=== PATIENT | male | born 1980 | race Caucasian/White ===

== ENCOUNTER 2021-01-21 14:49 | Emergency (ER) | payer OTHER ==
[~2021-01-21] VITALS: Ht 175.3 cm; Wt 70.4 kg
--- NOTE | 2021-01-21 15:00 | PHYS DOC ---
Past Medical History Past Medical History: Seizure, Other Additional Past Medical Histor: sustance abuse Past Surgical History: Other Additional Past Surgical Histo: R arm, R leg and L hand Smoking Status: Current Every Day Smoker Alcohol Use: None Drug Use: Benzodiazepine, Methamphetamine, Opiates General Adult HPI: HPI: Patient is a 40 year old male who was brought in by private vehicle for evaluation of injury sustained, prior to arrival, while at work. He was using a table saw and injured his left thumb, left index finger, left middle finger and left ring finger. His tetanus status is up-to-date within the last year. No other injuries or traumas reported. He has an amputation of his left index finger, he brought the remaining piece of finger with him in a cup of ice. He has a large laceration of his left thumb, fingertip avulsion/amputations of his middle and ring finger. He is unable to fully extend his left middle finger at the PIP joint. He is right-hand dominant. Review of Systems: Review of Systems: Constitutional: Denies fever or chills. [] Respiratory: Denies cough or shortness of breath. [] Cardiovascular: Denies chest pain or edema. [] GI: Denies abdominal pain, nausea, vomiting Musculoskeletal: Left digit injuries, lacerations, amputations, as noted above Integument: Multiple lacerations of the left hand/digits Neurologic: Denies headache, focal weakness or sensory changes. [] Psychiatric: Anxiety as it relates to current injury [] Heart Score: C/O Chest Pain: No Risk Factors: Risk Factors: DM, Current or recent (<one month) smoker, HTN, HLP, family history of CAD, obesity. Risk Scores: Score 0 - 3: 2.5% MACE over next 6 weeks - Discharge Home Score 4 - 6: 20.3% MACE over next 6 weeks - Admit for Clinical Observation Score 7 - 10: 72.7% MACE over next 6 weeks - Early Invasive Strategies Allergies: Allergies: Allergies Coded Allergies Type Severity Reaction Last Updated Verified No Known Drug Allergies 02/04/14 No Physical Exam: PE: Constitutional: Well developed, well nourished, appears to be in pain, anxious, mild distress secondary to injury, non-toxic HENT: Normocephalic, atraumatic Eyes: Sclera are clear Neck: Trachea midline Cardiovascular: Well perfused appearing, +2 radial pulse Lungs & Thorax: Respirations are non-labored Skin: Jagged laceration of the left thumb, jagged laceration of the left dorsal middle finger, overlying the PIP joint, left index finger is completely amputated just distal to the PIP joint; finger tip avulsion/partial amputation of the left middle finger and finger tip avulsion/partial amputation of the left ring finger Extremities: Multiple digit injuries of the left hand. The pinky finger/fifth digit is spared of injury. There is a jagged large laceration of the left thumb. Left index finger amputation with visible bone. Laceration overlying the left middle finger PIP joint with inability to extend at the PIP joint. Finger tip avulsions/partial amputations of the left middle and ring fingers. Painful and limited ROM. +2 radial pulse of the L hand. Neurologic: Alert and oriented X 3, gait steady, speech is fluent. Psychologic: Affect is anxious but appropriate for situation. He is cooperative. [] EKG: EKG: [] Radiology/Procedures: Radiology/Procedures: IMAGING REPORT Signed PATIENT: MECHE VILLANUEVA ACCOUNT: [id number] : 1980 LOCATION: ER AGE: 40 SEX: M EXAM STATUS: REG ER ORD. PHYSICIAN: TATI BURDICK DO REASON: multiple digit lacerations, amputations PROCEDURE: HAND LEFT 3V XR HAND_LEFT 3 VIEWS DATE: 01/21/2021 3:00 PM INDICATION: multiple digit lacerations, amputations COMPARISON: None. FINDINGS: Suboptimal patient positioning. First digit: Acute nondisplaced first distal phalanx fracture involving the mid diaphysis. Second digit: Traumatic amputation of the second digit at the middle phalanx diaphysis. Difficult to assess if PIP joint is congruent due to digit flexion. Third digit: Suboptimally evaluated due to digit flexion. Suspect third distal phalanx distal tuft avulsion fracture. Fourth digit: Traumatic amputation of the fourth digit tip, involving the distal tuft of the fourth distal phalanx. Fifth digit: No fracture seen, allowing for positioning. Chronic distal radius fracture status post ORIF. Chronic ulnar styloid fracture. IMPRESSION: Injuries of the first-fourth digits as above. Correlate with clinical exam, if clinically warranted additional imaging could be obtained. Electronically signed by: David Cash MD (01/21/2021 3:44 PM) [id number] DICTATED and SIGNED BY: DAVID CASH MD DATE: 01/21/21 [id number] Course & Med Decision Making: Course & Med Decision Making Pertinent Labs and Imaging studies reviewed. (See chart for details) The patient is given multiple doses of IV pain medication including IV morphine and IV Dilaudid. His tetanus is already up-to-date. He is given dose of IV Ancef. I dressed each of his wounds in Vaseline gauze, 4 x 4's and Kerlix. He is placed in a volar splint. His injuries require formal hand surgery consultation. I initially spoke with [facility], who reports they have availability of plastic/hand surgery. They do not have the ability to reimplant an amputated digit, and they recommended contact [facility]. I made multiple phone calls to [facility], over the course of over an hour, and ultimately they reported that they did not have an available hand surgeon, nor capacity to accept this patient. The patient was accepted by Dr. Lassiter in the ER at [facility]. She is transferred via EMS. Sandra Disclaimer: Sandra Disclaimer: This electronic medical record was generated, in whole or in part, using a voice recognition dictation system. Departure Departure Impression: Primary Impression: Open fracture of left thumb Additional Impressions: Open fracture of phalanx of left index finger Open fracture of phalanx of left middle finger Open fracture of phalanx of left ring finger Laceration of left thumb Laceration of left middle finger Extensor tendon laceration, finger, open wound Traumatic amputation of left index finger Traumatic amputation of fingertip Disposition: 02 SHORT TERM [facility]OSPITAL Condition: GUARDED Referrals: NO PCP (PCP) TATI BURDICK DO Jan 21, 2021 15:00
[2021-01-21] MEDS ORDERED: ONDANSETRON PF 4 MG/2 ML VIAL. ONE (15:05)
[2021-01-21] MEDS ORDERED: MORPHINE SULFATE 4 MG/ML INJ. ONE (15:05)
[2021-01-21 15:08] LABS: BASO % 1 % (0-3); EOS # 0.1 x10^3/uL (0.0-0.7); EOS % 3 % (0-3); HEMATOCRIT 43.3 % (39.0-53.0); HEMOGLOBIN 14.8 g/dL (13.0-17.5); LYMPH # 0.9 x10^3/uL (1.0-4.8); LYMPH % 17 % (24-48); MEAN CORPUSCULAR HEMOGLOBIN 32 pg (25-35); MEAN CORPUSCULAR HGB CONC 34 g/dL (31-37); MEAN CORPUSCULAR VOLUME 92 fL (79-100); MONO # 0.5 x10^3/uL (0.0-1.1); MONO % 10 % (0-9); NEUT # 3.4 x10^3/uL (1.8-7.7); NEUT % 69 % (31-73); PLATELET COUNT 166 x10^3/uL (140-400); RED CELL DISTRIBUTION WIDTH 12.8 % (11.5-14.5); WHITE BLOOD COUNT 4.9 x10^3/uL (4.0-11.0)
[2021-01-21] MEDS: ONDANSETRON PF 4 MG/2 ML VIAL. IVP ONE (15:09)
[2021-01-21] MEDS: MORPHINE SULFATE 4 MG/ML INJ. IVP ONE (15:11)
[2021-01-21] MEDS: ceFAZolin SODIUM IV Push 1 GM VIAL. IVP ONE (15:24)
[2021-01-21] MEDS: HYDROmorphone 2 MG/ML INJ. IVP ONE ×3 (15:27→17:15)
[2021-01-21 15:33] LABS: CALCIUM 8.3 mg/dL (8.5-10.1); CREATININE 1.1 mg/dL (0.7-1.3); GFR 74.1; POTASSIUM 3.2 mmol/L (3.5-5.1)
--- NOTE | 2021-01-21 15:46 | RAD ---
XR HAND_LEFT 3 VIEWS DATE: 01/21/2021 3:00 PM INDICATION: multiple digit lacerations, amputations COMPARISON: None. FINDINGS: Suboptimal patient positioning. First digit: Acute nondisplaced first distal phalanx fracture involving the mid diaphysis. Second digit: Traumatic amputation of the second digit at the middle phalanx diaphysis. Difficult to assess if PIP joint is congruent due to digit flexion. Third digit: Suboptimally evaluated due to digit flexion. Suspect third distal phalanx distal tuft av ulsion fracture. Fourth digit: Traumatic amputation of the fourth digit tip, involving the distal tuft of the fourth d istal phalanx. Fifth digit: No fracture seen, allowing for positioning. Chronic distal radius fracture status post ORIF. Chronic ulnar styloid fracture. IMPRESSION: Injuries of the first-fourth digits as above. Correlate with clinical exam, if clinically warranted a dditional imaging could be obtained. Electronically signed by: Aneudy Cash MD (01/21/2021 3:44 PM) [id number]
[2021-01-21 17:15] VITALS: BP 128/81
== END 2021-01-21 17:30 | disposition short-term general hospital (02) ==
LOC: ER 14:49
DX: S62.502B Fracture of unspecified phalanx of left thumb, initial encounter for open fracture (principal); S62.601B Fracture of unspecified phalanx of left index finger, initial encounter for open fracture; S62.603B Fracture of unspecified phalanx of left middle finger, initial encounter for open fracture; S62.605B Fracture of unspecified phalanx of left ring finger, initial encounter for open fracture; S61.012A Laceration without foreign body of left thumb without damage to nail, initial encounter; S61.213A Laceration without foreign body of left middle finger without damage to nail, initial encounter; S68.111A Complete traumatic metacarpophalangeal amputation of left index finger, initial encounter; S68.123A Partial traumatic metacarpophalangeal amputation of left middle finger, initial encounter; S68.125A Partial traumatic metacarpophalangeal amputation of left ring finger, initial encounter; F17.200 Nicotine dependence, unspecified, uncomplicated; Y28.8XXA Contact with other sharp object, undetermined intent, initial encounter; Y93.89 Activity, other specified; Y92.89 Other specified places as the place of occurrence of the external cause; Y99.0 Civilian activity done for income or pay
CPT/HCPCS: 29125; 36415; 73130; 80048; 85025; 96374; 96375; 96376; 99285; J0690; J1170; J2270; J2405